=== PATIENT | female | born 2000 | race African-American/Black ===

== ENCOUNTER 2019-07-08 11:28 | Emergency (ER) | payer OTHER ==
[~2019-07-08] VITALS: Ht 172.7 cm; Wt 61.2 kg
[2019-07-08 13:07] LABS: URINE BLOOD 3+ (Negative); URINE CLARITY CLOUDY; URINE COLOR RED; URINE GLUCOSE-RANDOM* NEGATIVE (Negative); URINE KETONES NEGATIVE (Negative); URINE LEUKOCYTES-REFLEX TRACE (Negative); URINE NITRITE-REFLEX NEGATIVE (Negative); URINE PROTEIN (DIPSTICK) 2+ (Negative); URINE SPECIFIC GRAVITY 1.025 (1.005-1.035); URINE UROBILINOGEN 0.2 E.U./dl (0.2-1.0)
[2019-07-08 13:12] LABS: ICTOTEST (BILI CONFIRMATORY) Negative (Negative); URINE BILIRUBIN NEGATIVE (Negative)
[2019-07-08 13:14] LABS: CASTS None Seen /LPF (None Seen); CRYSTALS None Seen /LPF (None Seen); SQUAMOUS 4-10 Moderate /LPF (0-3)
[2019-07-08 13:15] LABS: URINE RBC >20 Many /HPF (0-2); URINE WBC-REFLEX 6-15 Few /HPF (0-5)
[2019-07-08 13:17] LABS: BACTERIA-REFLEX 1-9 Few /HPF (None Seen)
[2019-07-08 13:46] LABS: CALCIUM 9.8 mg/dL (8.5-10.1); CREATININE 0.8 mg/dL (0.6-1.0); POTASSIUM 4.3 mmol/L (3.5-5.1)
[2019-07-08 13:48] LABS: ABSOLUTE NEUTROPHILS 5.9 thou/uL (1.4-8.2); BASOPHILS 0.3 % (0.0-2.0); EOSINOPHILS 1.2 % (0.0-3.0); HEMATOCRIT 45.7 % (37.0-47.0); HEMOGLOBIN 15.1 gm/dL (12.0-15.0); LYMPHOCYTES 19.9 % (24.0-44.0); MCH 28.8 pg (26.0-34.0); MCHC 33.1 g/dL (28.0-37.0); MONOCYTES 10.7 % (1.0-8.0); PLATELET COUNT 333 thou/uL (150-400); POLYS 67.9 % (36.0-66.0); RBC 5.25 mil/uL (4.20-5.00); RDW 14.4 % (10.5-14.5); WBC 8.7 thou/uL (4.0-11.0)
[2019-07-08] MEDS ORDERED: IBUPROFEN 600600 M1 PO (14:26)
[2019-07-08 14:31] VITALS: BP 122/58
--- NOTE | 2019-07-08 16:38 | EKG ---
[facility] [place] [address] ELECTROCARDIOGRAM REPORT Name: WILLIE ISLAS Room #: DEP [facility]#: [id number] Admission: 07/08/19 Attend Phys: Discharge: 07/08/19 Date of : 89 Report #: [id number] THIS REPORT FOR: cc: EDDIE - Anita family physician/PCP EDDIE - Anita family physician/PCP Saran Chinchilla MD ~ THIS REPORT FOR: //name// [facility] ED Test Date: 2019-07-08 Test Time: 13:27:30 Pat Name: WILLIE ISLAS Department: Room: Gender: F [employer] Surveying: ERIC : 2000 Requested By: Cecily Mclaughlin Order Number: [id number] MD: Saran Chinchilla Measurements Intervals [place] Rate: 61 P: 265 MO: 104 QRS: 63 QRSD: 94 T: 58 QT: 419 QTc: 422 Interpretive Statements Ectopic atrial rhythm Short MO interval No previous ECG available for comparison Electronically Signed On 07-08-2019 16:37:32 [employer]ORY HEL[employer] by Saran Chinchilla [email or web address] <ELECTRONICALLY SIGNED> By: Saran Chinchilla MD 07/08/19 1637 [id number] MD ELIA Tyler
== END 2019-07-08 14:31 | disposition home or self-care (01) ==
LOC: ER 11:28
PROVIDERS: Emergency Medicine; Physician Assistant
DX: N94.6 Dysmenorrhea, unspecified (principal); R55 Syncope and collapse; Z79.899 Other long term (current) drug therapy